=== PATIENT | female | born 1990 | race Caucasian/White ===

== ENCOUNTER 2023-01-22 03:58 | Inpatient (IN) | payer BC, SELFPAY ==
[2023-01-22] VITALS (114 sets, daily range): BP systolic 92–217; BP diastolic 44–187; PULSE 67–148; RESP 14–16; TEMP 36.5–37.4; O2SAT 96–100; BMI 25.7
[2023-01-22] MEDS: LACTATED RINGERS 1,000 ML 125 ML IV CONT ×2 (05:15→06:17)
--- NOTE | 2023-01-22 05:19 | LDADM ---
This patient, So Ontiveros, was admitted to Labor/Delivery/Recovery 105 on 01/22/23 at 03:58. Plans for labor, pain management and were discussed with patient. Patient/family oriented to hospital policies and general routines including ID bracelet, bed and alarms, visiting hours, pain management, procedures, bathroom and other care routines, personal items, smoking policy, room service/diet and guest tray routines, security routines, and visiting hours. Patient/Family are encouraged to report perceived risks to care and to ask questions if they do not understand what they are told or what they should do. See OBIX for further documentation.
[2023-01-22 05:22] LABS: Basophils Absolute Auto 0.1 K/mm3 (0.0-0.1); Basophils Percent Auto 0.5 % (0.2-1.2); Eosinophils Percent Auto 0.4 % (0-4.4); Hematocrit 41.3 % (37.0-47.0); Hemoglobin 13.9 g/dL (12.0-15.0); Immature Granulocyte Absolute 0.04 K/mm3 (0.00-0.031); Immature Granulocyte Percent A 0.4 % (0-0.5); Lymphocytes Absolute Auto 2.31 K/mm3 (0.9-3.2); Lymphocytes Percent Auto 22.2 % (18.3-44.2); Mean Corpuscular HGB Conc 33.7 g/dl (32-36); Mean Corpuscular Hemoglobin 31.8 pg (26-34); Mean Corpuscular Volume 94.5 fl (80-100); Monocytes Absolute Auto 0.6 K/mm3 (0.1-0.6); Monocytes Percent Auto 6.1 % (2.6-8.5); Neutrophils Absolute Auto 7.3 K/mm3 (1.3-6.7); Neutrophils Percent Auto 70.4 % (45.5-73.1); Platelet Count Result 204 k/mm3 (150-375); Red Blood Count 4.37 M/mm3 (4.2-5.4); Red Cell Distribution Width 11.7 % (11.5-14.5); White Blood Count 10.4 K/mm3 (4.5-10.0)
--- NOTE | 2023-01-22 05:47 | WPDANESEPPF ---
Anes - Initial Pre Proc Eval Procedure: Labor epidural Date/Time: 01/22/23 05:47 Surgeon: Kathryn Stanton MD Pre Op Diagnosis: labor pain Pre Op Diagnosis: Labor Patient Data Age: 32 Gender: F Height: 1.65 m Weight: 70 kg Last Vital Signs O2 Del Method Room Air 01/22/23 05:19 Allergies Allergy/AdvReac Type Severity Reaction Status Date / Time No Known Allergies Allergy Verified 12/27/22 12:34 Home Medications Medication Instructions Recorded Confirmed Type pantoprazole 40 mg tablet,delayed 40 mg PO HS 12/27/22 12/27/22 History release vit#24-iron amino acid 1 tablet PO DAILY 12/27/22 12/27/22 History chelat-folic acid 30 mg-975 mcg tablet Laboratory Tests 01/22/23 05:16 WBC 10.4 H K/mm3 (4.5-10.0) RBC 4.37 M/mm3 (4.2-5.4) Hgb 13.9 g/dL (12.0-15.0) Hct 41.3 % (37.0-47.0) MCV 94.5 fl (80-100) MCH 31.8 pg (26-34) MCHC 33.7 g/dl (32-36) RDW 11.7 % (11.5-14.5) Plt Count 204 k/mm3 (150-375) MPV 11.0 H fl (7.4-10.4) Immature Gran % (Auto) 0.4 % (0-0.5) Neut % (Auto) 70.4 % (45.5-73.1) Lymph % (Auto) 22.2 % (18.3-44.2) Meagher % (Auto) 6.1 % (2.6-8.5) Eos % (Auto) 0.4 % (0-4.4) Baso % (Auto) 0.5 % (0.2-1.2) Lymph # (Auto) 2.31 K/mm3 (0.9-3.2) Meagher # (Auto) 0.6 K/mm3 (0.1-0.6) Eos # (Auto) 0.0 K/mm3 (0-0.3) Baso # (Auto) 0.1 K/mm3 (0.0-0.1) Abs Immat Gran (auto) 0.04 H K/mm3 (0.00-0.031) Absolute Neuts (auto) 7.3 H K/mm3 (1.3-6.7) Absolute Nucleated RBC 0.0 K/mm3 (0.0-0.012) Nucleated RBC % 0.0 % (0.0-0.2) RPR Pending Patient hx anesthesia problems: none Family hx anesthesia problems: none Results Review: All pre-operative results and documents have been reviewed as part of the pre-operative evaluation. [facility] Family History Family History Sibling Rheumatoid arthritis Social History Social History Smoking status: Never smoker Substance use: never Lack of Transportation: No Lack of Food: Never True Current Housing: I Have Housing Concerned About Future Housing: No Difficulty Paying Gas/Electric Bills: No Difficulty Paying for Meds: No Currently Unemployed: No Education: High School Diploma/GED Difficulty w/ Childcare or Family Care: No Spiritual care concerns: No Anes - Eval Final PreProcedure Day of Procedure 01/22/23 05:47 Patient weight: normal Heart: regular rate and rhythm ASA classification: II Anesthetic plan: proceed Anesthesia type and monitoring: regional epidural and standard monitoring Results Review: All pre-operative results and documents have been reviewed as part of the pre-operative evaluation. Informed Consent: The patient's anesthetic plan and its attendant risks and benefits were discussed with the patient/family/POA. Questions were solicited and answers provided to the satisfaction of the patient/family/POA.
--- NOTE | 2023-01-22 06:11 | WPDANESEPN ---
Anes - Epidural Procedure Note Date/Time: 01/22/23 06:11 Consent: I have discussed with the patient/family/POA, the placement of an epidural catheter and the use of epidural narcotic/local anesthetic for labor analgesia and/or postoperative pain management, including associated potential risks, benefits, complications and side effects. I have discussed alternative methods of labor analgesia and/or postoperative pain management. The patient/family/POA, understand(s) and wish(es) to proceed with epidural narcotic/local anesthetic for labor analgesia and/or postoperative pain management. Time-Out: A pre-procedural Time-Out was completed immediately before starting the procedure and confirmed: Patient Identification, Site, Procedure, Patient Position and the Availability of Requisite Equipment. Clinical Indications: Labor pain Epidural Insertion Note Patient position: sitting Skin prep: chlorhexidine and sterile drape Needle: 18g Tuohy-Schliff Catheter: 20g Unstyleted Technique: Loss of resistance. Level of insertion: L3/4 Catheter skin marcio (cm): 9 Length in epidural space (cm): 4 Skin anesthesia: lidocaine 1% Test dose: 1.5% Lidocaine with 1:[id number] Epi, negative for subarachnoid Inj and negative for intravascular Inj Time of test dose: 06:01 Observations: tolerated well Complications: none
--- NOTE | 2023-01-22 07:35 | WPDOBADMIT ---
Obstetrics - Admit Note Admission Note: record reviewed. No pertinent additions to the history and/or any subsequent changes in the physical findings that are not consistent with the expected course of the were found.Pt arrived in active labor.SVE 5-6/100/-2 AROM moderate amount of clear, odorless fluid, anticipate vaginal delivery Additions to the history and/or subsequent changes in the physical findings follow. None.
[2023-01-22] MEDS: diphenhydrAMINE HCl INJ 50 MG/ML VIAL 25 MG IV PUSH (10:47)
[2023-01-22] MEDS: LIDOCAINE HCL 1% LOCAL INJ 20 ML VIAL (11:42)
[2023-01-22] MEDS: fentaNYL CITRATE INJ (*CRX) 100 MCG/2 ML VIAL 50 MCG IV PUSH (11:49)
--- NOTE | 2023-01-22 11:54 | PM.OBPRVD ---
OB - Delivery Note Procedure Delivery date: 01/22/23 Procedure: Delivery augmentation: Rupture of Membranes Delivery monitor: External FHT and External Uterine Route of delivery: Episiotomy description: None Laceration Description: Perineal - 2nd Degree Delivery repair: vicryl Specimen: No Quantitative Blood Loss (ml): 275 Anesthesia type: Epidural Disposition: Floor Baby Date of : 01/22/23 Time of : 11:33 Weeks of gestation at delivery: 40 gender: Male Weight (pounds): 7 Weight (ounces): 0 presentation: vertex position: Left Occiput Anterior Placenta delivery description: Spontaneous Cord Vessel Description: 3 Vessels, Clamped/Cut and Delayed Cord Clamping score one minute: 8 score five minutes: 9 Narrative: mother and baby skin to skin in stable condition
[2023-01-22] MEDS: OXYTOCIN 30 UNITS/NS 500 ML 30 UNITS/500 ML BAG 125 UNITS IV CONT (12:02)
[2023-01-22 12:40] LABS: Rapid Plasma Reagin Non-Reactive (NonReactive)
--- NOTE | 2023-01-22 14:23 | OBPPTRN ---
Patient transferred to post room #282 via wheelchair. Support person present. Oriented to unit, room, information board, rooming in, admission packet and security measures. Patient verbalizes understanding.
[2023-01-22] MEDS: IBUPROFEN 600 MG TABLET PO ×2 (14:50→21:22)
[2023-01-22] MEDS: DOCUSATE SODIUM 100 MG CAPSULE PO (14:50)
--- NOTE | 2023-01-22 15:46 | PC.NURSE ---
[id number] Introductions were made, then consulted with patient to assess needs related to . Mother led the conversation with her?plans to feed?her infant, the?experience so far stating infant latched downstairs but not long at all. There is a linear purple line on the areola that appears to be where infant latched earlier. Mother works well with her infant with encouragement and education. Father of baby is actively involved, supporting and encouraging. Encouraged understanding of the benefits of skin to skin (demonstrating unwrapping infant and placing upright on her chest), stimulating with massage touch, changing positions to encourage wakefulness, how to watch for early feeding cues, responsive feeding, feeding on demand (aiming for 8-12 times in 24 hours, about every 2-3 hours), milk production, hand expression, building/maintaining a milk supply, duration of feeding, signs of adequate intake/output and how to record on the feeding sheet. We hand expressed minimal breast milk droplets and used our finger to massage the milk droplet inside the infants lower lip. is sleepy and very reluctant to wake to breastfeed, however, on a rare moment opens his eyes or minimal feeding cues that are stopped by sleeping. Discussed with the parents the sleepy phase that occurs typically 2-6 hours after . The parents were encouraged to stimulate infant for feeding after 1700, watch for feeding cues, and using the education of how to wake their infant for offering every 2-3 hours. Reviewed good handwashing when or touching the breast/nipples to prevent infection. Parents voiced understanding of skin to skin, stimulating with massage touch, burping, checking the diaper, burping, changing positioning, responsive feedings, hand expressed colostrum, talking to to encourage if it has been 2 -2.5 hours since the start of the last , to call if infant does not latch, or if there is discomfort with . Resources provided for inpatient with name written on the communication board. Reported to the Primary RN.
[2023-01-23 05:28] LABS: Hematocrit 31.5 % (37.0-47.0); Hemoglobin 10.6 g/dL (12.0-15.0)
--- NOTE | 2023-01-23 08:14 | PM.OBPNVD ---
OB - PN: Subj Subjective Date/time seen: 01/23/23 08:14 Patient comments: no complaints, pain well controlled, incisional pain, tolerating diet and flatus present OB - PN: Obj Data Labs 01/23/23 04:04 Labs: Laboratory Results - last 24 hr 01/22/23 01/23/23 05:16 04:04 Hgb 10.6 L D Hct 31.5 L RPR Non-reactive OB - PN A/P Plan day: 1 Plan: routine care Comments: No problems, routine care Time Spent With Patient Time: Total time spent is greater than 50% in coordination of care (as documented) at patient's floor/unit and/or counseling patient: Exam Const: General: comfortable, no acute distress and alert Resp: Effort & Inspection: normal respiratory effort Auscultation: no crackles, no rales and no rhonchi Cardio: Rate: regular rate Heart sounds: no click, no murmurs and no rubs GI: Inspection: non-distended GI Palp: No Tenderness to palpation present (GI) Auscultation: normal bowel sounds Other: Incision - CDI Extrem: General: normal to inspection, no pedal edema and no calf tenderness
[2023-01-23 08:55] VITALS: BP 116/79; PULSE 88; RESP 16; TEMP 37.1; O2SAT 96
[2023-01-23] MEDS: MULTIVIT/MIN/PREN/FOL AC/IRON TABLET 1 TAB PO (09:04)
[2023-01-23] MEDS: DOCUSATE SODIUM 100 MG CAPSULE PO (09:04)
[2023-01-23] MEDS: ACETAMINOPHEN 325 MG TABLET 650 MG PO ×2 (10:32→19:16)
--- NOTE | 2023-01-23 10:34 | WPDANLDPN2 ---
Anes-Prog Note L&D Date/Time: 01/23/23 10:34 Comfortable throughout: labor and delivery Neuraxial method: epidural Epidural/Spinal procedure site: clean & non-tender Neuro status: Neuro function grossly intact. Cardiovascular status: normal Respiratory status: normal Airway patency: baseline Mental status: baseline Post-Op hydration status: normal Vital Signs: Last Vital Signs Temp 98.7 F 01/23/23 08:55 Pulse 88 01/23/23 08:55 Resp 16 01/23/23 08:55 BP 116/79 01/23/23 08:55 Pulse Ox 96 01/23/23 08:55 O2 Del Method Room Air 01/22/23 14:30 Pain score (VAS): 0 Post-procedural complaints: none Patient feedback: Patient satisfied with anesthetic care.
[2023-01-23] MEDS: IBUPROFEN 600 MG TABLET PO (19:16)
[2023-01-23 19:20] VITALS: BP 120/61; PULSE 83; RESP 16; TEMP 36.6; O2SAT 99
[2023-01-23] MEDS: HYDROcodone/acetaminophen (*CRX) 5-325 MG TABLET 1 TAB PO (23:41)
--- NOTE | 2023-01-24 07:30 | PC.NURSE ---
PT introductions made and plan of care discussed per post , pain management, breast/bottle feeding, daily care activities and pending discharge to home. PT and spouse both recipients of such instructions and no barriers to learning identified at this time. PT received such instructions per one to one discussion, mom baby care guide and demonstrations this shift. PT verbalized understanding of such care.
[2023-01-24 07:40] VITALS: BP 106/71; PULSE 74; RESP 16; TEMP 36.7; O2SAT 99
--- NOTE | 2023-01-24 07:41 | PM.OBPNVD ---
OB - PN: Subj Subjective Date/time seen: 01/24/23 07:41 Interval history: pp day 2 bottle feeding plan d/c home OB - PN: Obj Data Labs 01/23/23 04:04 OB - PN A/P Plan day: 2 Plan: routine care and discharge home Time Spent With Patient Time: Total time spent is greater than 50% in coordination of care (as documented) at patient's floor/unit and/or counseling patient: Review of Systems Review of Systems: All systems reviewed & are unremarkable except as noted in HPI and below Exam Const: General: cooperative and healthy appearing Chest: Chest palpation & inspection: normal inspection of the chest Resp: Effort & Inspection: normal respiratory effort Cardio: Rate: regular rate Rhythm: regular rhythm GI: Other: soft Skin: General skin exam: normal color Neuro: General: patient oriented x3
--- NOTE | 2023-01-24 07:42 | PM.OBDSVD ---
DS: Admitting Diagnosis Discharge Date 01/24/23 Admitting Diagnosis labor DS: Discharge Diagnosis Discharge Diagnosis (1) Vaginal delivery: Code(s): O80 - Encounter for full-term uncomplicated delivery Status: Acute OB - DS: Summary OB Procedures : None OB Procedures Intrapartum: Spontaneous Vag Delivery OB Procedures: : None Time Spent with Patient Time attestation: Total time spent providing and/or coordinating discharge services: Discharge Plan Discharge Attending physician on discharge: Kathryn Stanton Discharging Clinician: Lorie Wright Patient Disposition: Home, Self-Care Activity: pelvic rest Diet: regular Discharge Instructions: Education: Mom and Baby Guide Given to: Mother Follow-Up: Call your delivering provider's office for an appointment to be seen in: 6 Weeks Mom and baby should come to the [facility] for the follow-up appointment. Appointment Date/Time: January 26, 2023 at 11:00 am What to expect at your follow-up visit: Blood Pressure Check Call [phone] if you are unable to keep your appointment time. BREAST CARE: * Wear a snug supportive bra. * For engorgement discomfort: Breast Feeding: * Apply warm moist washcloths * Express milk as needed to relieve engorgement * Wear loose clothing Bottle Feeding: * May apply ice packs * For sore nipples: * Identify correct latch-on * Apply warm moist washcloths before and after nursing * Air dry nipples after nursing * May apply Lansinoh cream to nipples PERINEAL CARE: * Until bleeding stops, use your ori bottle after urinating * Change your pad frequently throughout the day * You may take sitz baths several times a day (fill your bathtub with warm water and soak for 20 minutes.) Do NOT bathe in the water * No tub baths until seen by your physician - You may shower ACTIVITY: * Rest as much as possible. * Do not exercise or lift anything heavier than your baby (such as laundry or other children.) * Avoid stairs or driving as much as possible. * Do not put anything into the vagina. No douching, tampons, or sexual activity until seen by physician. NOTIFY PHYSICIAN IF YOU HAVE ANY QUESTIONS OR IF ANY OF THE FOLLOWING SYMPTOMS OCCUR: * If your perineum becomes red, swollen, or more painful than what you have experienced in the hospital. * If your vaginal bleeding becomes foul smelling. * If your vaginal bleeding becomes more heavy than a period or if your bleeding changes from pink to bright red. However, you may pass an occasional walnut-sized clot once or twice for the first week . * If you experience a sharp, shooting pain in you calves. * If you discover a hard, reddened area on your breast or if you experience flu-like symptoms. * If you have a fever of 100.4 or greater DIET: * Eat regular, well-balanced meals. * Drink plenty of fluids daily. If , drink to thirst. Patient Instructions: Antibiotic Form Stand Alone Forms: General Discharge Information Follow-up/Referrals: Lorie Wright CNM [Certified Nurse [employer]] - 4 Weeks Discharge Medications: New ibuprofen 600 mg Tablet 600 mg PO Q6H PRN (Reason: Cramping) Qty: 30 0RF Continued pantoprazole 40 mg Tablet,Delayed Release (Dr/Ec) 40 mg PO HS Complete 30-975 mg-mcg Tablet 1 tablet PO DAILY Date of admission: 01/22/23 03:58 Primary Care Provider: Cb Dorado Admitting Provider: Kathryn Stanton Attending physician on admission: Kathryn Stanton Condition: Stable
[2023-01-24] MEDS: DOCUSATE SODIUM 100 MG CAPSULE PO (09:02)
[2023-01-24] MEDS: MULTIVIT/MIN/PREN/FOL AC/IRON TABLET 1 TAB PO (09:02)
[2023-01-24] MEDS: ACETAMINOPHEN 325 MG TABLET 650 MG PO (09:03)
[2023-01-24] MEDS: IBUPROFEN 600 MG TABLET PO (09:04)
[2023-01-24] MEDS: LANOLIN (LANSINOH) 7.5 GM CREAM 1 APPLIC TOPICAL (09:04)
--- NOTE | 2023-01-24 09:41 | PC.NURSE ---
0930 - Consult requested to assess flange fit and learn how to use the symphony pump. Reported to RN patient was previously given the Symphony pump, instructed to consistently pump according to evidence based information and it was also reported that mother did not pump during the inpatient stay. Reviewed flange fitting and patient is a 12-14mm nipple size. Patient was instructed to not use the flanges provided in the pump kit as they are too big but rather use the measuring information with her pump at home to find the flange that fits well. A suggestion was made to work with the pump (Spectra 2) she has at home here to learn how her pump works. Mother is going home today. Reviewed with mother to achieve adequate milk production she would need to pump at least every 3 hours (8 times in 24 hours) 1-2 times at night. Discussed with mother there should not be pain and her supply may or may not be robust related to not stimulating consistently with hand expression, pumping or . Encouraged mother to reach out for support with questions or concerns. Mother voiced understanding of the education shared along with mom and baby guide for additional resource information.
--- NOTE | 2023-01-24 11:00 | PC.NURSE ---
Patient was given the opportunity to view the discharge video Mother & Baby Care, The First Two Weeks and to ask questions. Patient downloaded the and has been given the mother/baby guide for home reference. PT discharge instructions provided and pt verbalized understanding of such care.
--- NOTE | 2023-01-24 12:20 | PC.NURSE ---
PT discharged to home ambulatory accompanied by both spouse and infant and taken to waiting car. Follow up appts confirmed
== END 2023-01-24 12:20 | disposition home or self-care (01) | DRG 807 ==
LOC: ANHLDR 11:42 → ANHOB2 14:31
PROVIDERS: Advanced Practice Midwife; Admitting Provider Obstetrics & Gynecology; PCP Internal Medicine; Visit Provider Obstetrics & Gynecology
DX: O70.1 Second degree perineal laceration during delivery (principal); Z37.0 Single live birth; Z23 Encounter for immunization; Z3A.40 40 weeks gestation of pregnancy
CPT/HCPCS: 36415; 85014; 85018; 85025; 86592; 86850; 86900; 86901; 90471; 90686; A9270; G0008; J1200; J2590; J2795; J3010; J7120

== ENCOUNTER 2024-08-25 09:09 | Observation (INO) | payer BC, SELFPAY ==
[2024-08-25] VITALS (7 sets, daily range): BP systolic 97–116; BP diastolic 61–68; PULSE 63–74; BMI 24.5
--- OUTSIDE RECORDS SUMMARY | 2024-08-25 09:22 | XMS_ITS | Referral Summary ---
Author Organization [facility] C Address [address] [place] [address] Care Team Providers Care Customs Consultant Name Role Phone Jayashree Reeder PERITONEAL DIALYSIS REGISTERED NURSE Primary Care Provider [phone] Encounters Date Type Department Care Team Description 06/12/2024 10:00 AM AIRWORTHINESS SAFETY INSPECTOR Office Visit [facility] Internal Medicine at [place] [address] [place] [address] Jayashree Reeder NP Physical exam, annual (Primary Dx); BMI 23.0-23.9, adult from Last 3 Months Allergies No known active allergies Medications ondansetron ODT (ZOFRAN-ODT) 8 mg disintegrating tablet DISSOLVE 1 TABLET ON THE TONGUE TWICE DAILY NEEDED Active escitalopram (LEXAPRO) 10 mg tablet Take 1 tablet (10 mg total) by mouth daily Active vit 47-nfac-wegym-dha 27mg iron- 800 mcg-250 mg capsule Take by mouth Active Active Problems Problem Noted Date Diagnosed Date BMI 23.0-23.9, adult 06/12/2024 Physical exam, annual 06/12/2024 Social History Tobacco Use Types Packs/Day Years Used Date Smoking Tobacco: Never Smokeless Tobacco: Never Tobacco Cessation:Counseling Given: Not Answered PHQ-2 Answer Date Recorded PHQ-2 Total Score (If total score is 3 or more points, staff should administer the PHQ-9) 0 06/12/2024 Comments Unknown Sex and Gender Information Value Date Recorded Sex Assigned at Not on file Legal Sex Female 11:30 AM CDT Gender Identity Not on file Sexual Orientation Not on file Last Filed Vital Signs Vital Sign Reading Time Taken Comments Blood Pressure 100/60 06/12/2024 10:02 AM AIRWORTHINESS SAFETY INSPECTOR Pulse 68 06/12/2024 10:02 AM AIRWORTHINESS SAFETY INSPECTOR Temperature 36.7 C (98.1 F) 06/12/2024 10:02 AM AIRWORTHINESS SAFETY INSPECTOR Respiratory Rate - - Oxygen Saturation 97% 06/12/2024 10:02 AM AIRWORTHINESS SAFETY INSPECTOR Inhaled Oxygen Concentration - - Weight 64.9 kg (143 lb) 06/12/2024 10:02 AM AIRWORTHINESS SAFETY INSPECTOR Height 165.1 cm (5' 5) 06/12/2024 10:02 AM AIRWORTHINESS SAFETY INSPECTOR Body Mass Index 23.8 06/12/2024 10:02 AM AIRWORTHINESS SAFETY INSPECTOR Plan of Treatment Not on file Insurance [employer] [place] Care Teams Customs Consultant Relationship Specialty Start Date End Date Jayashree Reeder NP [address] [address] PCP - General Internal Medicine 06/12/24
--- OUTSIDE RECORDS SUMMARY | 2024-08-25 09:22 | XMS_ITS | Clinical Summary ---
Author Organization [facility] Address [address] [place] [address] Care Team Providers Care Supervisor Stage Carpentry Name Role Phone Pcp, None Primary Care Provider Unavailabl e Source Comments [facility],non-owned Affiliates and Associated Physician Practices is amultiple site organization consisting of ambulatory clinics and hospital sitesin [place], [place], [place] and [place]. This disclosure is being madepursuant to the Care Everywhere program and may not contain all information available regarding this patient. Last updated 18.[employer] Allergies No known active allergies Medications * Be aware that medications may not be up to date on this document. Alwaysverify current medications with the patient. escitalopram (Lexapro) 10 MG tablet Take 1 (one) tablet by mouth once daily Active pantoprazole EC (Protonix) 40 MG tablet Take 1 (one) tablet by mouth once daily Active nystatin (Mycostatin) 474142 UNIT/GM ointmentIndicat ions:History of candidiasis,Vul leonard itching Apply to affected area 2 times daily as needed PATIENT NEEDS AN APPOINTMENT FOR FUTURE REFILLS 30 g 4 Active Active Problems Problem Noted Date Diagnosed Date Low grade squamous intraepit helial lesion (LGSIL) on Papanicolaou smear of cervix 2017 Overview (11/29/2023): Low grade intrepith lesion cyto smr crvx (LGSIL);Recorded Elsewhere: No Location: [facility] Source: EHR Chronic: N Practice ID: [id number] Billable Time: 10:15:00 AM Low grade intrepith lesion cyto smr crvx (LGSIL);Recorded Elsewhere: No Location: [facility] Source: EHR Chronic: N Practice ID: [id number] Billable Time: 10:15:00 AM Family History Medical History Relation Name Comments None Known Father Cancer - Lung Maternal Grandmother None Known Mother CAD (Coronary Artery Disease) Paternal Grandfather CAD (Coronary Artery Disease) Paternal Grandmother Relation Name Status Comments Father Alive Maternal Grandfather Alive Maternal Grandmother Mother Alive Paternal Grandfather Paternal Grandmother Social History Tobacco Use Types Packs/Day Years Used Date Smoking Tobacco: Never Passive Smoke Exposure: Never Smokeless Tobacco: Never Alcohol Use Standard Drinks/Week Comments Yes 0 (1 standard drink = 0.6 oz pur e alcohol) PHQ-2 Answer Date Recorded Patient Health Questionnaire-2 Score 0 11/28/2023 Comments No Sex and Gender Information Value Date Recorded Sex Assigned at Not on file Legal Sex Female 5:37 AM BILINGUAL TRAINER Gender Identity Not on file Sexual Orientation Not on file Last Filed Vital Signs Vital Sign Reading Time Taken Comments Blood Pressure 120/84 11/29/2023 12:52 PM CDT Pulse 88 05/13/2019 11:27 AM BILINGUAL TRAINER Temperature 36.8 C (98.2 F) 05/13/2019 11:27 AM BILINGUAL TRAINER Respiratory Rate 16 05/13/2019 11:27 AM BILINGUAL TRAINER Oxygen Saturation 96% 05/13/2019 11:27 AM BILINGUAL TRAINER Inhaled Oxygen Concentration - - Weight 69.9 kg (154 lb) 11/29/2023 12:52 PM CDT Height 165.1 cm (5' 5) 11/29/2023 12:52 PM CDT Body Mass Index 25.63 11/29/2023 12:52 PM CDT Plan of Treatment Health Maintenance Due Date Last Done Comments PAP SMEAR 1992 HIV SCREENING 06/18/2007 HEPATITIS C SCREENING 06/13/2010 DTAP/TDAP/TD VACCINES (1 - Tdap) 06/18/2011 HEPATITIS B VACCINE (1 of 3 - 19+ 3-dose series) 06/18/2011 COVID-19 VACCINE (2023-2 5 season) 2023 DEPRESSION SCREENING 04/16/2024 11/29/2023 INFLUENZA VACCINE (Season Ended) 2024 ZOSTER VACCINE (1 of 2) 2042 HIB VACCINE Aged Out No longer eligi ble based on patient's age to complete this topic HPV VACCINE Aged Out No longer eligi ble based on patient's age to complete this topic MENINGOCOCCAL (Group B) VACC INE SHARED DECISION-MAKING Aged Out No longer eligibl e based on patient's age to complete this topic MENINGOCOCCAL GROUPS A/C/Y/W VACCINE Aged Out No longer eligible b ased on patient's age to complete this topic PNEUMOCOCCAL VACCINE Aged Out No long er eligible based on patient's age to complete this topic Insurance [facility] Address: [facility] [id number] [place] [address] Care Teams Supervisor Stage Carpentry Relationship Specialty Start Date End Date Pcp, None [address] [place] [address] PCP - General 11/29/23
--- OUTSIDE RECORDS SUMMARY | 2024-08-25 09:22 | XMS_ITS | Clinical Summary ---
Author Organization [facility] C Address [address] [place] [address] Care Team Providers Care Time Stamp Assembler Name Role Phone Jayashree Reeder NP Primary Care Provider [phone] Allergies No known active allergies Medications ondansetron ODT (ZOFRAN-ODT) 8 mg disintegrating tablet DISSOLVE 1 TABLET ON THE TONGUE TWICE DAILY NEEDED Active escitalopram (LEXAPRO) 10 mg tablet Take 1 tablet (10 mg total) by mouth daily Active vit 38-egdf-xsvoy-dha 27mg iron- 800 mcg-250 mg capsule Take by mouth Active Active Problems Problem Noted Date Diagnosed Date BMI 23.0-23.9, adult 06/12/2024 Physical exam, annual 06/12/2024 Encounters Date Type Department Care Team Description 06/12/2024 10:00 AM HONING JOB SETTER Office Visit [facility] Internal Medicine at [place] [address] [place] [address] Jayashree Reeder NP Physical exam, annual (Primary Dx); BMI 23.0-23.9, adult from Last 3 Months Family History Medical History Relation Name Comments No Known Problems Father No Known Problems Mother Relation Name Status Comments Father Alive Mother Alive Social History Tobacco Use Types Packs/Day Years [...] on file Sexual Orientation Not on file Obstetrics History Last Filed Vital Signs Vital Sign Reading Time Taken Comments Blood Pressure 100/60 06/12/2024 10:02 AM HONING JOB SETTER Pulse 68 06/12/2024 10:02 AM HONING JOB SETTER Temperature 36.7 C (98.1 F) 06/12/2024 10:02 AM HONING JOB SETTER Respiratory Rate - - Oxygen Saturation 97% 06/12/2024 10:02 AM HONING JOB SETTER Inhaled Oxygen Concentration - - Weight 64.9 kg (143 lb) 06/12/2024 10:02 AM HONING JOB SETTER Height 165.1 cm (5' 5) 06/12/2024 10:02 AM HONING JOB SETTER Body Mass Index 23.8 06/12/2024 10:02 AM HONING JOB SETTER Plan of Treatment Health Maintenance Due Date Last Done Comments Cervical Cancer Screening 1992 Hepatitis C Screening 1992 DTaP/Tdap/Td Vaccine (1 - Tdap) 06/18/2003 Varicella Vaccines (1 of 2 - 13+ 2-dose series) 2005 Hepatitis B Screening 2010 Influenza Vaccine (Season Ended) 2024 Depression Screening 06/12/2025 06/12/2024 Regular Well Visit/Exam 18-64 06/12/2025 06/12/2024 HPV Vaccines Aged Out No longer eligi ble based on patient's age to complete this topic Pneumococcal vaccine <65 Aged Out No longer eligible based on patient's age to complete this topic Insurance [employer] [place] Care Teams Time Stamp Assembler Relationship Specialty Start Date End Date Jayashree Reeder NP [address] [place] [address] PCP - General Internal Medicine 06/12/24
--- NOTE | 2024-08-25 09:32 | OBADM ---
This patient, So Ontiveros, admitted to the OB room OB Post 116 for observation. Patient/family oriented to hospital policies and general routines including ID bracelet, bed and alarms, visiting hours, pain management, procedures, bathroom and other care routines, personal items, smoking policy, room service/diet, and visiting hours. Patient/Family are encouraged to report perceived risks to care and to ask questions if they do not understand what they are told or what they should do.
[2024-08-25 10:15] LABS: Add Urine Microscopic? NO; Appearance Urine Clear (Clear); Bilirubin Urine Negative (Negative); Blood Urine Negative (Negative); Color Urine Yellow (Yellow); Glucose Urine UA Negative (Negative); Ketones Urine Negative (Negative); Leukocyte Esterase Ur Negative LEU/UL (Negative); Nitrate Urine Negative (Negative); Protein Urine Negative (Negative); Specific Grav Ur 1.007 (1.001-1.035); Urobilinogen Urine 0.2 mg/dL (<2.0); pH Urine 7.5 (5.0-9.0)
--- NOTE | 2024-09-22 21:29 | P.PNOB_ITS ---
OB - Triage/Final Diagnosis Visit Information Comments/Additional reasons for admission: I have assessed the risk for this patient, So Ontiveros, and determined that she would benefit from observation care. Evaluation Laboratory results: Laboratory Tests 08/25/24 09:51 Urine Color Yellow Urine Appearance Clear Urine pH 7.5 Ur Specific [place] 1.007 Urine Protein Negative Urine Glucose (UA) Negative Urine Ketones Negative Ur Blood (Man) Negative Urine Nitrate Negative Urine Bilirubin Negative Urine Urobilinogen 0.2 Leukocyte Esterase Rfl Negative Final Diagnosis (1) Uterine cramping: Code(s): N94.89 - Other specified conditions associated with female genital organs and menstrual cycle Status: Acute
== END 2024-08-25 11:17 | disposition home or self-care (01) ==
PROVIDERS: Admitting Provider Obstetrics & Gynecology; PCP Internal Medicine; Referring Provider Advanced Practice Midwife; Visit Provider Obstetrics & Gynecology
DX: O99.891 Other specified diseases and conditions complicating pregnancy (principal); N94.89 Other specified conditions associated with female genital organs and menstrual cycle; Z3A.26 26 weeks gestation of pregnancy
CPT/HCPCS: 81003; G0378; G0379

== ENCOUNTER 2024-11-20 22:19 | Inpatient (IN) | payer BC, SELFPAY ==
--- OUTSIDE RECORDS SUMMARY | 2024-11-20 22:44 | XMS_ITS | Clinical Summary ---
Author Organization [facility] Address [address] [place] [address] Care Team Providers Care Selvage Machine Operator Name Role Phone Pcp, None Primary Care Provider Unavailabl e Source Comments [facility],non-owned Affiliates and Associated Physician Practices is amultiple site organization consisting of ambulatory clinics and hospital sitesin [place], [place], [place] and [place]. This disclosure is being madepursuant to the Care Everywhere program and may not contain all information available regarding this patient. Last updated 18.JustSpotted Allergies No known active allergies Medications * Be aware that medications may not be up to date on this document. Alwaysverify current medications with the patient. escitalopram (Lexapro) 10 MG tablet Take 1 (one) tablet by mouth once daily Active pantoprazole EC (Protonix) 40 MG tablet Take 1 (one) tablet by mouth once daily Active nystatin (Mycostatin) 429482 UNIT/GM ointmentIndicat ions:History of candidiasis,Vul leonard itching Apply to affected area 2 times daily as needed PATIENT NEEDS AN APPOINTMENT FOR FUTURE REFILLS 30 g 4 Active Active Problems Problem Noted Date Diagnosed Date Low grade squamous intraepit helial lesion (LGSIL) on Papanicolaou smear of cervix 2017 Overview (11/29/2023): Low grade intrepith lesion cyto smr crvx (LGSIL);Recorded Elsewhere: No Location: [facility] Source: EHR Chronic: N Practice ID: [id number] Billable Time: 10:15:00 AM Low grade intrepith lesion cyto smr crvx (LGSIL);Recorded Elsewhere: No Location: [facility] Source: EHR Chronic: N Practice ID: [id number] [...] on file Legal Sex Female 5:37 AM DICTATING MACHINE TRANSCRIBER Gender Identity Not on file Sexual Orientation Not on file Last Filed Vital Signs Vital Sign Reading Time Taken Comments Blood Pressure 120/84 11/29/2023 12:52 PM CDT Pulse 88 05/13/2019 11:27 AM DICTATING MACHINE TRANSCRIBER Temperature 36.8 C (98.2 F) 05/13/2019 11:27 AM DICTATING MACHINE TRANSCRIBER Respiratory Rate 16 05/13/2019 11:27 AM DICTATING MACHINE TRANSCRIBER Oxygen Saturation 96% 05/13/2019 11:27 AM DICTATING MACHINE TRANSCRIBER Inhaled Oxygen Concentration - - Weight 69.9 kg (154 lb) 11/29/2023 12:52 PM CDT Height 165.1 cm (5' 5) 11/29/2023 12:52 PM CDT Body Mass Index 25.63 11/29/2023 12:52 PM CDT Plan of Treatment Health Maintenance Due Date Last Done Comments HIV SCREENING 06/18/2007 HEPATITIS C SCREENING 06/13/2010 DTAP/TDAP/TD VACCINES (1 - Tdap) 06/18/2011 HEPATITIS B VACCINE (1 of 3 - 19+ 3-dose series) 06/18/2011 PAP SMEAR 2013 HPV VACCINE (1 - 3-dose SCDM series) 06/18/2019 COVID-19 VACCINE (2023-2 5 season) 2023 DEPRESSION SCREENING 04/16/2024 11/29/2023 INFLUENZA VACCINE (#1) 2024 ZOSTER VACCINE (1 of 2) 2042 [...] patient's age to complete this topic Insurance [facility] Address: [address] [place] [address] Care Teams Selvage Machine Operator Relationship Specialty Start Date End Date Pcp, None [address] [place] [address] PCP - General 11/29/23
--- OUTSIDE RECORDS SUMMARY | 2024-11-20 22:44 | XMS_ITS | Clinical Summary ---
Author Organization [facility] C Address [address] [place] [address] Care Team Providers Care Road Boss Name Role Phone Jayashree Reeder NP Primary Care Provider [phone] Allergies No known active allergies Medications ondansetron ODT (ZOFRAN-ODT) 8 mg disintegrating tablet DISSOLVE 1 TABLET ON THE TONGUE TWICE DAILY NEEDED Active escitalopram (LEXAPRO) 10 mg tablet Take 1 tablet (10 mg total) by mouth daily Active vit 11-ifjc-adxmj-dha 27mg iron- 800 mcg-250 mg capsule Take by mouth Active Active Problems Problem Noted Date Diagnosed Date BMI 23.0-23.9, adult 06/12/2024 Physical exam, annual 06/12/2024 Family History Medical History Relation Name Comments [...] Comments Blood Pressure 100/60 06/12/2024 10:02 AM RENEWABLE ENERGY DIVISION MANAGER Pulse 68 06/12/2024 10:02 AM RENEWABLE ENERGY DIVISION MANAGER Temperature 36.7 C (98.1 F) 06/12/2024 10:02 AM RENEWABLE ENERGY DIVISION MANAGER Respiratory Rate - - Oxygen Saturation 97% 06/12/2024 10:02 AM RENEWABLE ENERGY DIVISION MANAGER Inhaled Oxygen Concentration - - Weight 64.9 kg (143 lb) 06/12/2024 10:02 AM RENEWABLE ENERGY DIVISION MANAGER Height 165.1 cm (5' 5) 06/12/2024 10:02 AM RENEWABLE ENERGY DIVISION MANAGER Body Mass Index 23.8 06/12/2024 10:02 AM RENEWABLE ENERGY DIVISION MANAGER Plan of Treatment Health Maintenance Due Date Last Done Comments Cervical Cancer Screening 1992 Hepatitis C Screening 1992 DTaP/Tdap/Td Vaccine (1 - Tdap) 06/18/2003 Varicella Vaccines (1 of 2 - 13+ 2-dose series) 2005 Hepatitis B Screening 2010 HPV Vaccines (1 - 3-dose SCD M series) 06/18/2019 Influenza Vaccine (#1) 2024 Depression Screening 06/12/2025 06/12/2024 Regular Well Visit/Exam 18-64 06/12/2025 06/12/2024 Pneumococcal vaccine <65 Aged Out No longer eligible based on patient's age to complete this topic Insurance [employer] PPO [place] Care Teams Road Boss Relationship Specialty Start Date End Date Jayashree Reeder NP [address] [place] [address] PCP - General Internal Medicine 06/12/24
[2024-11-20 23:20] VITALS: BMI 27.0
--- NOTE | 2024-11-20 23:26 | OBPPTRN ---
Patient transferred to post room # via ( ). Support person present. Oriented to unit, room, information board, rooming in, admission packet and security measures. Patient verbalizes understanding.
[2024-11-20 23:37] LABS: Hematocrit 34.5 % (37.0-47.0); Hemoglobin 11.3 g/dL (12.0-15.0); Immature Granulocyte Percent A 0.3 % (0-0.5); Lymphocytes Absolute Auto 2.84 K/mm3 (0.9-3.2); Mean Corpuscular HGB Conc 32.8 g/dl (32-36); Mean Corpuscular Hemoglobin 28.5 pg (26-34); Mean Corpuscular Volume 87.1 fl (80-100); Nucleated Red Blood Cells Absolute Auto 0.000 K/mm3 (0.0-0.012); Nucleated Red Blood Cells Perc 0.0 % (0.0-0.2); Platelet Count Result 214 k/mm3 (150-375); Red Blood Count 3.96 M/mm3 (4.2-5.4); White Blood Count 10.2 K/mm3 (4.5-10.0)
[2024-11-20] MEDS: LACTATED RINGERS 1,000 ML 125 ML IV CONT (23:58)
[2024-11-21] VITALS (183 sets, daily range): BP systolic 92–138; BP diastolic 45–83; PULSE 31–159; RESP 14–18; TEMP 36.3–38.2; O2SAT 76–100
[2024-11-21 00:32] LABS: Syphilis IgG/IgM Antibody Non-Reactive (Nonreactive)
--- NOTE | 2024-11-21 01:10 | WPDANESEPP ---
Anes - Eval Pre Procedure Procedure: Labor epidural Date/Time: 11/21/24 01:10 Surgeon: Maximino Preop Diagnosis: Pain during labor Pre Op Diagnosis: SROM Patient Data Age: 34 Gender: F Height: 1.65 m Weight: 73.6 kg Last Vital Signs Pulse 102 H 11/21/24 01:07 BP 93/77 L 11/21/24 01:07 Pulse Ox 100 11/21/24 01:06 Allergies Allergy/AdvReac Type Severity Reaction Status Date / Time No Known Allergies Allergy Verified 11/20/24 23:26 Home Medications ?Medication ?Instructions ?Recorded ?Confirmed ?Type vit 24-iron amino acid 1 tablet PO DAILY 12/27/22 10/29/24 History chelat-folic acid 30 mg-975 mcg tablet escitalopram oxalate 10 mg tablet mg PO 10/29/24 History Laboratory Tests 11/20/24 23:30 WBC 10.2 H K/mm3 (4.5-10.0) RBC 3.96 L M/mm3 (4.2-5.4) Hgb 11.3 L g/dL (12.0-15.0) Hct 34.5 L % (37.0-47.0) MCV 87.1 fl (80-100) MCH 28.5 pg (26-34) MCHC 32.8 g/dl (32-36) RDW 12.6 % (11.5-14.5) Plt Count 214 k/mm3 (150-375) MPV 11.2 H fl (7.4-10.4) Immature Gran % (Auto) 0.3 % (0-0.5) Neut % (Auto) 64.4 % (45.5-73.1) Lymph % (Auto) 27.8 % (18.3-44.2) Ashley % (Auto) 6.6 % (2.6-8.5) Eos % (Auto) 0.6 % (0-4.4) Baso % (Auto) 0.3 % (0.2-1.2) Lymph # (Auto) 2.84 K/mm3 (0.9-3.2) Ashley # (Auto) 0.7 H K/mm3 (0.1-0.6) Eos # (Auto) 0.1 K/mm3 (0-0.3) Baso # (Auto) 0.0 K/mm3 (0.0-0.1) Abs Immat Gran (auto) 0.03 K/mm3 (0.00-0.031) Absolute Neuts (auto) 6.6 K/mm3 (1.3-6.7) Absolute Nucleated RBC 0.000 K/mm3 (0.0-0.012) Nucleated RBC % 0.0 % (0.0-0.2) Syphilis IgG/IgM Ab Non-reactive (Nonreactive) Blood Type Pending Antibody Screen Pending Patient hx anesthesia problems: none Family hx anesthesia problems: none Results Review: All pre-operative results and documents have been reviewed as part of the pre-operative evaluation. [facility] Past Medical History Medical History (Updated 11/21/24 @ 01:11 by Chantal Aguilera CRNA) IUP (intrauterine ), incidental Depression Anxiety Family History Family History Sibling Rheumatoid arthritis Social History Social History Smoking status: Never smoker Substance use: never Do You Feel Safe in your Home?: Yes Lack of Transportation: No Lack of Food: Never True Current Housing: I Have Housing Concerned About Future Housing: No Difficulty Paying Gas/Electric Bills: No Difficulty Paying for Meds: No Currently Unemployed: No Education: High School Diploma/GED Difficulty w/ Childcare or Family Care: No Spiritual care concerns: No Exam Day of Procedure 11/21/24 01:10
[2024-11-21] MEDS: ONDANSETRON INJ 4 MG/2 ML VIAL IV PUSH (04:09)
[2024-11-21] MEDS: FAMOTIDINE 20 MG/2 ML VIAL IV PUSH (04:38)
[2024-11-21] MEDS: OXYTOCIN 30 UNITS/NS 500 ML 30 UNITS/500 ML BAG 999 UNITS IV CONT (07:30)
--- NOTE | 2024-11-21 07:44 | PM.OBPRVD ---
OB - Vaginal Delivery Note Procedure Delivery date: 11/21/24 Induction method: None Delivery monitor: External FHT and External Uterine Route of delivery: Episiotomy description: None Laceration Description: Perineal - 2nd Degree Delivery repair: vicryl Specimen: No Quantitative Blood Loss (ml): 100 Anesthesia type: Epidural Disposition: Floor Complications: No immediate complications
[2024-11-21] MEDS: OXYTOCIN 30 UNITS/NS 500 ML 30 UNITS/500 ML BAG 125 UNITS IV CONT (08:05)
[2024-11-21] MEDS: MULTIVIT/MIN/PREN/FOL AC/IRON TABLET 1 TAB PO (09:03)
[2024-11-21] MEDS: IBUPROFEN 600 MG TABLET PO ×2 (09:03→18:23)
--- NOTE | 2024-11-21 09:21 | S_PTH ---
PATIENT: So Ontiveros LOC: [facility] U#:[id number] AGE/SX: 34/F ROOM: 288 RE11/20/[address]: Brando Stanton MD : 1990 BED: 00 DIS: 11/22/2024 SPEC #: [id number] RECD: 11/21/24 10:21 STATUS: JUAN PABLO REQ #: [id number] GIOVANNI: 11/21/24 09:[address]: Brando Stanton DEPT: [facility] Surgical RECD BY: Wojciech Vences ENTERED: 11/21/24 10:21 SP TYPE: Surgical OTHR DR: MD Jus Berry MD Tissues: A - Placenta Procedures: Hematoxylin and Eosin Stain Gross and Microscopic Level 5
[2024-11-21] MEDS: BENZOCAINE 20% AER SPR (*SP) 56 GM CAN 1 SPRAY TOPICAL (10:15)
[2024-11-21] MEDS: WITCH HAZEL 40 PADS 1 PAD TOPICAL (10:15)
--- NOTE | 2024-11-21 10:40 | PC.NURSE ---
Patient transferred to post room #288 via wheelchair. Support person present. Oriented to unit, room, information board, rooming in, admission packet and security measures. Patient verbalizes understanding.
[2024-11-21] MEDS: ACETAMINOPHEN 325 MG TABLET 650 MG PO (11:45)
--- NOTE | 2024-11-21 15:07 | PC.NURSE ---
1420: Patient off unit - downstairs to visit in level 2 nursery. 1448: Patient back on unit
[2024-11-22] MEDS: ACETAMINOPHEN 325 MG TABLET 650 MG PO (01:19)
[2024-11-22 04:28] VITALS: BP 109/64; PULSE 60; RESP 16; TEMP 36.4; O2SAT 99
[2024-11-22 05:21] LABS: Hematocrit 32.2 % (37.0-47.0); Hemoglobin 10.2 g/dL (12.0-15.0)
[2024-11-22 08:50] VITALS: BP 116/74; PULSE 66; RESP 16; TEMP 36.4; O2SAT 99
[2024-11-22] MEDS: IBUPROFEN 600 MG TABLET PO (08:55)
[2024-11-22] MEDS: MULTIVIT/MIN/PREN/FOL AC/IRON TABLET 1 TAB PO (08:55)
[2024-11-22] MEDS: DOCUSATE SODIUM 100 MG CAPSULE PO (08:55)
--- NOTE | 2024-11-22 10:47 | P.PNOB_ITS ---
OB - PN: Subj Subjective Date/time seen: 11/22/24 10:47 Patient comments: no complaints, pain well controlled, incisional pain, tolerating diet and flatus present OB - PN: Obj Data Labs 11/22/24 04:56 Labs: Laboratory Results - last 24 hr 11/22/24 04:56 Hgb 10.2 L Hct 32.2 L OB - PN A/P Plan day: 1 Plan: routine care Comments: No problems, routine care Time Spent With Patient Time: Total time spent is greater than 50% in coordination of care (as documented) at patient's floor/unit and/or counseling patient: Exam 2 Const: General: comfortable, no acute distress and alert Resp: Effort & Inspection: normal respiratory effort Auscultation: no crackles, no rales and no rhonchi Cardio: Rate: regular rate Heart sounds: no click, no murmurs and no rubs GI: Inspection: non-distended GI Palp: No Tenderness to palpation present (GI) Auscultation: normal bowel sounds Other: Incision - CDI Extrem: General: normal to inspection, no pedal edema and no calf tenderness
--- NOTE | 2024-11-22 10:47 | PM.OBDSVD ---
DS: Admitting Diagnosis Discharge Date 11/22/2024 Admitting Diagnosis Term DS: Discharge Diagnosis Discharge Diagnosis (1) Term delivered: Code(s): O80 - Encounter for full-term uncomplicated delivery Status: Acute OB - DS: Summary OB Procedures : None OB Procedures Intrapartum: Spontaneous Vag Delivery OB Procedures: : None Peripartum Data Laceration Description: Perineal - 2nd Degree Episiotomy description: None Time Spent with Patient Time attestation: Total time spent providing and/or coordinating discharge services: DS: Data Data Completed and Pending Pending studies at discharge: Pending at discharge 11/21/24 09:21 Surgical [PTH] Routine Labs on day of discharge: Labs from last 24 hours 11/22/24 04:56 Hgb 10.2 L Hct 32.2 L Discharge Plan Discharge Discharging Clinician: Brando Stanton Patient Disposition: Home Activity: pelvic rest Diet: regular Patient Instructions: Antibiotic Form Patient Language: Hong Konger Stand Alone Forms: General Discharge Information Follow-up/Referrals: Brando Stanton MD [Physician] - Discharge Medications: No Action PNV no.24-onns-gqpzh acid 30-975 mg-mcg Tablet 1 tablet PO DAILY escitalopram oxalate 10 mg tablet PO Date of admission: 11/20/24 22:19 Primary Care Provider: Cb Dorado Admitting Provider: Jus Newby Attending physician on admission: Jus Newby Condition: Stable
--- NOTE | 2024-11-22 11:22 | PC.NURSE ---
Baby is transferred, no follow up appt here at the hospital needed per Dr. Stanton. Pt will follow up in the office as needed and then in 4-6 weeks.
== END 2024-11-22 11:38 | disposition home or self-care (01) | DRG 806 ==
LOC: ANHLDR 11-21 08:55 → ANHOB2 11-22 10:48 → ANHLDR 11-25 12:01
PROVIDERS: Admitting Provider Obstetrics & Gynecology; PCP Internal Medicine; Visit Provider Obstetrics & Gynecology
DX: O69.81X0 Labor and delivery complicated by cord around neck, without compression, not applicable or unspecified (principal); O75.2 Pyrexia during labor, not elsewhere classified; Z37.0 Single live birth; Z3A.39 39 weeks gestation of pregnancy; O70.1 Second degree perineal laceration during delivery
CPT/HCPCS: 36415; 85014; 85018; 85025; 86593; 86850; 86900; 86901; 88307; A9270; J2405; J2590; J2795; J7120